=== PATIENT | male | born 1960 | race Caucasian/White ===

== ENCOUNTER → 2024-05-07 09:48 | Outpatient (REF) | payer MEDICARE, OTHER, SELFPAY | LOC: RAD 09:48 | PROVIDERS: ATTENDING PHYSICIAN Surgery Vascular Surgery | DX: I71.43 Infrarenal abdominal aortic aneurysm, without rupture (principal) | CPT/HCPCS: 76770 ==

== ENCOUNTER → 2024-05-12 09:27 | Outpatient (REF) | payer MEDICARE, OTHER, SELFPAY | LOC: HWRAD 09:27 | PROVIDERS: ATTENDING PHYSICIAN Surgery Vascular Surgery; FAMILY PHYSICIAN Internal Medicine | DX: I71.43 Infrarenal abdominal aortic aneurysm, without rupture (principal) | CPT/HCPCS: 74174; Q9967 ==

== ENCOUNTER → 2024-11-30 14:37 | Outpatient (REF) | payer MEDICARE, OTHER, SELFPAY | LOC: HWRAD 14:37 | PROVIDERS: ATTENDING PHYSICIAN Surgery Vascular Surgery; FAMILY PHYSICIAN Internal Medicine | DX: I71.43 Infrarenal abdominal aortic aneurysm, without rupture (principal) | CPT/HCPCS: 74176 ==

== ENCOUNTER → 2025-02-12 11:34 | Outpatient (REF) | payer MEDICARE, OTHER, SELFPAY | LOC: HWRAD 11:34 | PROVIDERS: ATTENDING PHYSICIAN Internal Medicine Critical Care Medicine; FAMILY PHYSICIAN Internal Medicine | DX: Z87.891 Personal history of nicotine dependence (principal) | CPT/HCPCS: 71271 ==

== ENCOUNTER 2025-03-01 06:08 | Day surgery (SDC) | payer MEDICARE, OTHER, SELFPAY ==
[2025-02-22 11:35] LABS: Hematocrit 42.3 % (39.0-52.0); Hemoglobin 13.8 g/dL (13.0-18.0); Mean Corp Hgb Conc. 32.6 g/dL (33.0-37.0); Mean Corpuscular Hgb 27.6 pg (27.0-31.0); Mean Corpuscular Volume 84.6 fL (80.0-94.0); Mean Platelet Volume 9.7 fL (7.4-10.4); Platelet Count 291 10^3/uL (130-400); Red Cell Dist. Width 15.2 % (11.5-14.5); White Blood Cell Count 11.3 10^3/uL (4.8-10.8)
[2025-02-22 11:44] LABS: PT 12.4 Sec (11.4-14.6)
[2025-02-22 11:45] LABS: APTT 33.7 Sec (23.4-35.0)
[2025-02-22 12:15] LABS: Blood Urea Nitrogen 17 mg/dl (9-20); Calcium 9.4 mg/dl (8.4-10.2); Carbon Dioxide 28 mmol/L (22-30); Chloride 100 mmol/L (98-107); Glucose 153 mg/dl (70-99); Potassium 4.4 mmol/L (3.5-5.1); Sodium 140 mmol/L (135-145); eGFR > 60.00
[2025-02-22 13:47] VITALS: BMI 38.0
[2025-03-01] VITALS (8 sets, daily range): BP systolic 103–147; BP diastolic 56–83; BMI 38.0
[2025-03-01 08:57] LABS: Glucose - Point of Care 146 mg/dl (70-99)
[2025-03-01 10:47] LABS: Glucose - Point of Care 168 mg/dl (70-99)
== END 2025-03-01 12:09 | disposition home or self-care (01) ==
LOC: SDS 06:08
PROVIDERS: ATTENDING PHYSICIAN Internal Medicine Critical Care Medicine; FAMILY PHYSICIAN Internal Medicine
DX: C34.31 Malignant neoplasm of lower lobe, right bronchus or lung (principal)
CPT/HCPCS: 31629; 31654; 88173; 88305; 36415; 80048; 81459; 82962; 85027; 85610; 85730; 87070; 87102; 87116; 87205; 88341; 88342; 93005; 94640

== ENCOUNTER → 2025-03-23 18:23 | Outpatient (REF) | payer MEDICARE, OTHER, SELFPAY | LOC: MRI 18:23 | PROVIDERS: ATTENDING PHYSICIAN Internal Medicine Hematology & Oncology | DX: C34.31 Malignant neoplasm of lower lobe, right bronchus or lung (principal) | CPT/HCPCS: 70553; A9575 ==

== ENCOUNTER → 2025-03-31 13:59 | Outpatient (REF) | payer MEDICARE, OTHER, SELFPAY | LOC: HWRAD 13:59 | PROVIDERS: ATTENDING PHYSICIAN Internal Medicine Critical Care Medicine; FAMILY PHYSICIAN Internal Medicine; OTHER PHYSICIAN Internal Medicine Hematology & Oncology; REFERRING PHYSICIAN Internal Medicine Cardiovascular Disease | DX: E04.1 Nontoxic single thyroid nodule (principal); R94.31 Abnormal electrocardiogram [ECG] [EKG] | CPT/HCPCS: 76536; 93306 ==

== ENCOUNTER → 2025-04-14 14:20 | Outpatient (REF) | payer MEDICARE, OTHER, SELFPAY ==
[2025-04-14 14:35] VITALS: BP_SYST 81
== END ==
LOC: RADI 14:20
PROVIDERS: ATTENDING PHYSICIAN Internal Medicine Critical Care Medicine; FAMILY PHYSICIAN Internal Medicine
DX: E04.1 Nontoxic single thyroid nodule (principal)
CPT/HCPCS: 10005; 88173

== ENCOUNTER → 2025-05-18 12:35 | Outpatient (REF) | payer MEDICARE, OTHER, SELFPAY ==
[2025-05-18 14:09] LABS: Hematocrit 42.2 % (39.0-52.0); Hemoglobin 13.4 g/dL (13.0-18.0); Mean Corp Hgb Conc. 31.8 g/dL (33.0-37.0); Mean Corpuscular Volume 85.6 fL (80.0-94.0); Nucleated Red Blood Cells % 0 % (-); Platelet Count 320 10^3/uL (130-400); Red Cell Dist. Width 15.5 % (11.5-14.5)
[2025-05-18 16:12] LABS: ALT (SGPT) 15 U/L (0-50); AST (SGOT) 12 U/L (17-59); Albumin 4.5 g/dl (3.5-5.0); Alkaline Phosphatase 100 U/L (38-126); Blood Urea Nitrogen 20 mg/dl (9-20); Calcium 9.6 mg/dl (8.4-10.2); Carbon Dioxide 28 mmol/L (22-30); Chloride 98 mmol/L (98-107); Glucose 136 mg/dl (70-99); Magnesium 2.0 mg/dl (1.6-2.3); Potassium 4.7 mmol/L (3.5-5.1); Sodium 138 mmol/L (135-145); Total Protein 7.8 g/dl (6.3-8.2); eGFR > 60.00
== END ==
LOC: REG 12:35
PROVIDERS: ATTENDING PHYSICIAN Internal Medicine Hematology & Oncology; FAMILY PHYSICIAN Internal Medicine; OTHER PHYSICIAN Internal Medicine Hematology & Oncology
DX: C34.31 Malignant neoplasm of lower lobe, right bronchus or lung (principal)
CPT/HCPCS: 36415; 80053; 80076; 83735; 85025

== ENCOUNTER → 2025-06-02 12:26 | Outpatient (REF) | payer MEDICARE, OTHER, SELFPAY ==
[2025-06-02 13:57] LABS: Hematocrit 38.2 % (39.0-52.0); Hemoglobin 12.3 g/dL (13.0-18.0); Mean Corp Hgb Conc. 32.2 g/dL (33.0-37.0); Mean Corpuscular Volume 84.7 fL (80.0-94.0); Nucleated Red Blood Cells % 0 % (-); Platelet Count 219 10^3/uL (130-400); Red Cell Dist. Width 15.9 % (11.5-14.5)
[2025-06-02 14:20] LABS: ALT (SGPT) 19 U/L (0-50); AST (SGOT) 13 U/L (17-59); Albumin 4.2 g/dl (3.5-5.0); Alkaline Phosphatase 107 U/L (38-126); Blood Urea Nitrogen 18 mg/dl (9-20); Calcium 10.0 mg/dl (8.4-10.2); Carbon Dioxide 29 mmol/L (22-30); Chloride 100 mmol/L (98-107); Glucose 128 mg/dl (70-99); Magnesium 1.9 mg/dl (1.6-2.3); Potassium 4.6 mmol/L (3.5-5.1); Sodium 137 mmol/L (135-145); Total Protein 7.5 g/dl (6.3-8.2); eGFR > 60.00
== END ==
LOC: REG 12:26
PROVIDERS: ATTENDING PHYSICIAN Internal Medicine Hematology & Oncology; FAMILY PHYSICIAN Internal Medicine
DX: C34.31 Malignant neoplasm of lower lobe, right bronchus or lung (principal)
CPT/HCPCS: 36415; 80053; 83735; 85025

== ENCOUNTER → 2025-06-09 11:52 | Outpatient (REF) | payer MEDICARE, OTHER, SELFPAY ==
[2025-06-09 13:00] LABS: Hematocrit 36.5 % (39.0-52.0); Hemoglobin 11.9 g/dL (13.0-18.0); Mean Corp Hgb Conc. 32.6 g/dL (33.0-37.0); Mean Corpuscular Volume 85.1 fL (80.0-94.0); Nucleated Red Blood Cells % 0 % (-); Platelet Count 148 10^3/uL (130-400); Red Cell Dist. Width 16.7 % (11.5-14.5)
[2025-06-09 13:32] LABS: ALT (SGPT) 18 U/L (0-50); AST (SGOT) 13 U/L (17-59); Albumin 4.2 g/dl (3.5-5.0); Alkaline Phosphatase 96 U/L (38-126); Blood Urea Nitrogen 20 mg/dl (9-20); Calcium 9.5 mg/dl (8.4-10.2); Carbon Dioxide 29 mmol/L (22-30); Chloride 103 mmol/L (98-107); Glucose 120 mg/dl (70-99); Magnesium 1.8 mg/dl (1.6-2.3); Potassium 4.8 mmol/L (3.5-5.1); Sodium 140 mmol/L (135-145); Total Protein 7.2 g/dl (6.3-8.2); eGFR > 60.00
== END ==
LOC: REG 11:52
PROVIDERS: ATTENDING PHYSICIAN Internal Medicine Hematology & Oncology
DX: C34.31 Malignant neoplasm of lower lobe, right bronchus or lung (principal)
CPT/HCPCS: 36415; 80053; 83735; 85025

== ENCOUNTER → 2025-06-16 12:32 | Outpatient (REF) | payer MEDICARE, OTHER, SELFPAY ==
[2025-06-16 13:48] LABS: Hematocrit 35.8 % (39.0-52.0); Hemoglobin 11.7 g/dL (13.0-18.0); Mean Corp Hgb Conc. 32.7 g/dL (33.0-37.0); Mean Corpuscular Volume 85.0 fL (80.0-94.0); Nucleated Red Blood Cells % 0 % (-); Platelet Count 148 10^3/uL (130-400); Red Cell Dist. Width 17.5 % (11.5-14.5)
[2025-06-16 15:29] LABS: ALT (SGPT) 19 U/L (0-50); AST (SGOT) 13 U/L (17-59); Albumin 4.3 g/dl (3.5-5.0); Alkaline Phosphatase 102 U/L (38-126); Blood Urea Nitrogen 20 mg/dl (9-20); Calcium 10.0 mg/dl (8.4-10.2); Carbon Dioxide 31 mmol/L (22-30); Chloride 100 mmol/L (98-107); Glucose 135 mg/dl (70-99); Magnesium 1.8 mg/dl (1.6-2.3); Potassium 4.2 mmol/L (3.5-5.1); Sodium 139 mmol/L (135-145); Total Protein 7.4 g/dl (6.3-8.2); eGFR > 60.00
== END ==
LOC: REG 12:32
PROVIDERS: ATTENDING PHYSICIAN Internal Medicine Hematology & Oncology; FAMILY PHYSICIAN Internal Medicine
DX: C34.31 Malignant neoplasm of lower lobe, right bronchus or lung (principal)
CPT/HCPCS: 36415; 80053; 83735; 85025

== ENCOUNTER → 2025-06-23 11:12 | Outpatient (REF) | payer MEDICARE, OTHER, SELFPAY ==
[2025-06-23 16:20] LABS: ALT (SGPT) 19 U/L (0-50); AST (SGOT) 16 U/L (17-59); Albumin 4.2 g/dl (3.5-5.0); Alkaline Phosphatase 97 U/L (38-126); Blood Urea Nitrogen 21 mg/dl (9-20); Calcium 9.9 mg/dl (8.4-10.2); Carbon Dioxide 24 mmol/L (22-30); Chloride 105 mmol/L (98-107); Glucose 121 mg/dl (70-99); Magnesium 1.8 mg/dl (1.6-2.3); Potassium 4.8 mmol/L (3.5-5.1); Sodium 138 mmol/L (135-145); Total Protein 7.3 g/dl (6.3-8.2); eGFR > 60.00
[2025-06-23 18:09] LABS: Hematocrit 32.7 % (39.0-52.0); Hemoglobin 11.1 g/dL (13.0-18.0); Mean Corp Hgb Conc. 33.9 g/dL (33.0-37.0); Mean Corpuscular Volume 85.2 fL (80.0-94.0); Nucleated Red Blood Cells % 0 % (-); Platelet Count 150 10^3/uL (130-400); Red Cell Dist. Width 18.1 % (11.5-14.5)
== END ==
LOC: HWRAD 11:12
PROVIDERS: ATTENDING PHYSICIAN Surgery Vascular Surgery; FAMILY PHYSICIAN Internal Medicine; REFERRING PHYSICIAN Internal Medicine Hematology & Oncology
DX: I71.43 Infrarenal abdominal aortic aneurysm, without rupture (principal); C34.31 Malignant neoplasm of lower lobe, right bronchus or lung
CPT/HCPCS: 36415; 74176; 80053; 83735; 85025

== ENCOUNTER 2025-06-29 15:53 | Emergency (ER) | payer MEDICARE, OTHER, SELFPAY ==
[2025-06-29 15:54] VITALS: BP 148/91
[2025-06-29 16:20] LABS: Hematocrit 33.1 % (39.0-52.0); Hemoglobin 11.2 g/dL (13.0-18.0); Mean Corp Hgb Conc. 33.8 g/dL (33.0-37.0); Mean Corpuscular Volume 83.0 fL (80.0-94.0); Nucleated Red Blood Cells % 0 % (-); Platelet Count 204 10^3/uL (130-400); Red Cell Dist. Width 20.4 % (11.5-14.5)
[2025-06-29 16:42] VITALS: BP 131/82
[2025-06-29 16:43] VITALS: BMI 38.0
[2025-06-29 16:45] LABS: INR 0.96; PT 13.1 Sec (11.4-14.6)
[2025-06-29 16:46] LABS: ALT (SGPT) 18 U/L (0-50); APTT 30.8 Sec (23.4-35.0); AST (SGOT) 14 U/L (17-59); Albumin 4.5 g/dl (3.5-5.0); Alkaline Phosphatase 119 U/L (38-126); Blood Urea Nitrogen 19 mg/dl (9-20); Calcium 9.5 mg/dl (8.4-10.2); Carbon Dioxide 21 mmol/L (22-30); Chloride 101 mmol/L (98-107); Estimated Creatinine Clearance > 125 ml/min; Glucose 166 mg/dl (70-99); Potassium 4.1 mmol/L (3.5-5.1); Sodium 134 mmol/L (135-145); Total Protein 7.8 g/dl (6.3-8.2); eGFR > 60.00
--- NOTE | 2025-06-29 16:47 | ED.GENMED ---
History of Present Illness
General
Chief Complaint: Heart Rate Problem
Time Seen by Provider: 06/29/25 16:47
History of Present Illness
History of Present Illness:
FOCUSED PAST MEDICAL HISTORY
- Lung cancer, diabetes
REVIEW OF OLD RECORDS
- I reviewed bronchoscopy report from February 2025
Note:
CHIEF COMPLAINT(S)
Elevated heart rate and shortness of breath.
HISTORY OF PRESENT ILLNESS
The patient is a 65-year-old male with a history of small cell lung cancer, currently undergoing chemotherapy and radiation treatments. The patient reports experiencing an elevated heart rate for the last few weeks, initially around 105 beats per
minute and recently escalating to 138 beats per minute, noted during a visit to the oncologists office. He also reports significant shortness of breath. The patient has a known mass in the right lung confirmed as small cell lung cancer and has
undergone radiation treatment under the care of Dr. Crawford
Additional health concerns include aortic aneurysm and a history of a transient ischemic attack (mini-stroke), but no ongoing deficits or hypertension have been reported. The latest blood work showed a previously low white blood cell count has
improved, but hemoglobin remains slightly low at 11, and glucose levels are elevated with a reading of 160, in the context of his known diabetes. The patient was advised on the possibility of dehydration contributing to the elevated heart rate and
will receive IV fluids. A CT scan with contrast of the chest is recommended to further evaluate for potential complications such as a blood clot.
PAST MEDICAL AND SURGICAL HISTORY
- Small cell lung cancer
- Aortic aneurysm
- Transient ischemic attack (mini-stroke)
- Diabetes
MEDICATIONS
Not specifically listed, but patient is undergoing chemotherapy and radiation.
PHYSICAL EXAM
- General: Alert, no acute distress. Appears somewhat weak and debilitated. Elevated BMI.
- Skin: Warm, dry.
- Head: Normocephalic, atraumatic.
- Neck: Supple, trachea midline.
- Eyes, ears, nose, mouth and throat: Oral mucosa moist.
- Cardiovascular: Normal peripheral perfusion, no edema. Tachycardic
- Respiratory: Respirations are non-labored.
- Gastrointestinal: Abdomen nondistended.
- Back: Normal range of motion, normal alignment.
- Musculoskeletal: Normal range of motion, normal strength.
- Neurological: Alert and oriented to person, place, time, and situation; no focal neurological deficit observed.
- Psychiatric: Cooperative, appropriate mood & affect.
PROBLEM LIST
Acute:
- Elevated heart rate (sinus tachycardia)
- Shortness of breath
Chronic:
- Small cell lung cancer
- Diabetes
- Aortic aneurysm
- History of transient ischemic attack
PLAN
- Administer IV fluids to address possible dehydration contributing to sinus tachycardia.
- Perform a CT scan with contrast of the chest to evaluate for complications such as a pulmonary embolism.
- Close monitoring of heart rate and respiratory status.
- Possible consultation with cardiology based on findings from Fran the patients advanced quality engineer.
- Monitor blood glucose levels closely due to known diabetes.
DIFFERENTIAL DIAGNOSIS
The Differential Diagnosis includes, in no particular order and is not limited to:
- Sinus tachycardia secondary to dehydration
- Sinus tachycardia associated with anxiety or pain
- Atrial fibrillation
- Supraventricular tachycardia
- Pulmonary embolism
- Infection or sepsis
- Thyroid dysfunction (e.g., hyperthyroidism)
- Chemotherapy-induced cardiotoxicity
- Aortic aneurysm-related complications
- Acute coronary syndrome
RADIOLOGY
- CTA chest obtained
EKG
- Sinus 131, PACs, right bundle branch block, tachycardia and PVCs are new in comparison to 02/22/2025
LABS
- White count 4.5 (was 1.86 days ago), hemoglobin 11.2 which is near baseline, platelets 204, glucose 166
UPDATE
-SUMMARY OF ENCOUNTER
The patient, a 65-year-old male with a history of small cell lung cancer, presented to the emergency department with complaints of an elevated heart rate and shortness of breath. He reported his heart rate was initially 105 beats per minute, which
increased to 138 beats per minute. The concern was addressed with intravenous fluids, resulting in an improvement of heart rate to approximately 110 beats per [address] A [address] scan was conducted, showing changes consistent with known lung cancer but no
signs of pulmonary embolism, pneumonia, or pleural effusion. Blood work showed stable hemoglobin at 11.2 and improved white blood cell count at 4.5, which had previously been low. The patients kidney function was normal, suggesting no severe
dehydration.
DISPOSITION
Discharge
ASSESSMENT
The patient appears to have an elevated heart rate likely secondary to mild dehydration, with no evidence of acute complications such as pulmonary embolism or infection based on imaging and lab results.
EMERGENCY TREATMENTS ADMINISTERED
IV fluids were administered.
MANAGEMENT OF THE PATIENTS CARE WAS DISCUSSED WITH
Dr. Mendoza, the patients oncologist, was contacted to discuss patient management.
PLAN
The patient will be discharged as his symptoms have improved with treatment. Monitoring his heart rate and hydration status is recommended. Continued coordination with oncology is necessary for ongoing cancer management.
INDEPENDENT REVIEW OF LABS AND INTERPRETATION OF TESTS
My independent review of the CBC indicates hemoglobin is 11.2, and the white blood cell count has improved to 4.5, aligning with the recent resolution of previous myelosuppression. Kidney function is normal.
My independent interpretation of the chest CT shows no signs of pulmonary embolism, pneumonia, or pleural effusion, but confirms known lung cancer pathology.
MEDICATION RECONCILIATION
IV fluids administered during the stay to manage dehydration.
MEDICAL DECISION MAKING
1. Number and Complexity of Problems Addressed: Chronic conditions affecting care: small cell lung cancer, elevated heart rate (sinus tachycardia), dehydration with DDx including pulmonary embolism, coley vivtachycardia, infection, and acute coronary
syndrome.
2. Data:
Category 1: Tests and documents:
Reviewed CBC showing hemoglobin at 11.2 and white blood count at 4.5.
Independently interpreted chest CT scan showing no acute complications but consistent with known cancer pathology.
Category 2: Assessment requiring an independent historian: Consulted with Dr. Reilly regarding patient management.
-Risk:
Consideration of Admission/Observation: Escalation of care including admission/observation was considered given the complexity and risk of the patients presenting complaint, exam findings, and their underlying comorbidities. However, ultimately I
feel the patient is safe for outpatient management with close follow-up. Reasoning: Work-up reassuring, does not reveal any acute life/organ threatening processes, patients symptoms well controlled upon reevaluation, reexamination is reassuring,
vitals are stable, patient agreeable with discharge, reliable for follow-up.
DIAGNOSIS
- Sinus Tachycardia, R00.0
- Small Cell Lung Cancer, C34.9
- Dehydration, E86.0
Phy Exam
Physical Exam
Physical Exam:
See HPI
Course
Orders/Labs/Results
Orders:
Orders
06/29/25 15:53
Electrocardiogram (*1) Urgent
Reason for Study: Atrial Fibrillation
EKG- Treatment ONCE
06/29/25 16:08
CMP [Comprehensive Metabolic Panel] Urgent
Complete Blood Count/With Diff Urgent
PT/INR [Prothrombin Time] Urgent
PTT Urgent
Troponin I Urgent
06/29/25 16:57
CT Chest PE Study Urgent
Comment:
Reason For Exam: sob tachycardia lung ca
0.9% Sodium Chloride 500 ml [Nss] 500 ml IV BOLUS
Abnormal Lab Results
06/29/25
16:08
WBC 4.5 L 10^3/uL
(4.8-10.8)
RBC 3.99 L 10^6/uL
(4.70-6.10)
Hgb 11.2 L g/dL
(13.0-18.0)
Hct 33.1 L %
(39.0-52.0)
RDW 20.4 H %
(11.5-14.5)
Absolute Lymphs (auto) 0.6 L 10^3/uL
(1.2-3.4)
Absolute Monos (auto) 0.8 H 10^3/uL
(0.1-0.6)
Immature Gran % 0.7 H %
(0-0.5)
Lymphocytes % 14.2 L %
(20.5-51.1)
Monocytes % 18.2 H %
(1.7-9.3)
Sodium 134 L mmol/L
(135-145)
Carbon Dioxide 21 L mmol/L
(22-30)
Glucose 166 H mg/dl
(70-99)
AST 14 L U/L
(17-59)
06/29/25 16:08
06/29/25 16:08
Vital Signs
Initial and Last Documented VS:
Initial Vital Signs
Temp Pulse Resp BP Pulse Ox
36.4 C 134 20 148/91 98
06/29/25 15:54 06/29/25 15:54 06/29/25 15:54 06/29/25 15:54 06/29/25 15:54
Last Documented Vital Signs
Temp Pulse Resp BP Pulse Ox
36.4 C 108 20 116/77 96
06/29/25 15:54 06/29/25 19:15 06/29/25 19:15 06/29/25 19:00 06/29/25 19:15
*Pulse Oximetry
SaO2: 98
Oxygen Mode of Delivery: Room air
Patient hypoxic: no
*Critical Care Note
Total Time (30-74mins, 75-104mins- exclusive of procedures): Not Applicable
ED Attending Note
-
Portions of this chart may have been created with voice recognition software.� Occasional wrong word or��sound alike� substitutions may have occurred due to the inherent limitations of voice recognition software.
Discharge Plan
Departure
Patient Disposition: Home (Routine Discharge)
Date of Disposition: 06/29/25
Time of Disposition: 18:57
Patient with high blood pressure during this ER visit?: Yes
Discharge Problem:
Tachycardia
Prescriptions:
No Action
losartan 50 mg Tablet
50 mg PO DAILY
atorvastatin 40 mg Tablet
40 mg PO DAILY
metformin 500 mg Tablet
500 mg PO BID
metoprolol succinate 50 mg Tablet Extended Release 24 Hr
50 mg PO DAILY
pantoprazole [Protonix] 40 mg Tablet,Delayed Release (Dr/Ec)
40 mg PO DAILY
triamcinolone acetonide [Nasacort] 55 mcg Aerosol,Wickes
1 spray INTRANASAL DAILY PRN (Reason: congestion)
aspirin 81 mg Tablet
81 mg PO DAILY
hydrochlorothiazide 25 mg Tablet
25 mg PO DAILY
albuterol sulfate 90 mcg/actuation Hfa Aerosol Inhaler
2 puff INHALATION BID
duloxetine [Cymbalta] 60 mg Capsule,Delayed Release(Dr/Ec)
60 mg PO DAILY
budesonide-formoterol [Breyna] 160-4.5 mcg/actuation Hfa Aerosol Inhaler
2 puff INHALATION BID
Referrals:
Kavin Vegas DO [Family Provider, Internal Medicine]
Activity Restrictions/Additional Instructions:
I notified Dr. Ravi of your evaluation here. Return here if worse or other concerns. Your hemoglobin is slightly low which is similar to prior. Your EKG shows a normal sinus rhythm but on the faster side.
Interventions
Interventions:
*Risk Screen - Suicide Last Done: 06/29/25 17:14
*Neglect/Abuse Screening Last Done: 06/29/25 17:14
*ED COVID-19 Vaccine History Last Done: 06/29/25 17:57
ED- Cardiac Assessment Last Done: 06/29/25 17:14
ED- Pulmonary Assessment Last Done: 06/29/25 17:14
Discharge Date and Time
Print Language: PASHTO
[2025-06-29 16:49] LABS: Troponin I 0.014 ng/ml
[2025-06-29 17:00] VITALS: BP 136/72
[2025-06-29] MEDS: NSS 500 IV (17:52)
[2025-06-29 18:00] VITALS: BP 123/84
[2025-06-29 19:00] VITALS: BP 116/77
== END 2025-06-29 20:15 | disposition home or self-care (01) ==
LOC: EMR 15:53
PROVIDERS: Physician Assistant Medical; EMERGENCY PHYSICIAN Emergency Medicine; FAMILY PHYSICIAN Internal Medicine
DX: R00.0 Tachycardia, unspecified (principal); E86.0 Dehydration; I49.1 Atrial premature depolarization; I45.10 Unspecified right bundle-branch block; C34.91 Malignant neoplasm of unspecified part of right bronchus or lung; E11.9 Type 2 diabetes mellitus without complications; I71.9 Aortic aneurysm of unspecified site, without rupture; Z79.84 Long term (current) use of oral hypoglycemic drugs; Z79.82 Long term (current) use of aspirin; Z86.73 Personal history of transient ischemic attack (TIA), and cerebral infarction without residual deficits; Z92.3 Personal history of irradiation
CPT/HCPCS: 99284; 96360; 71275; 80053; 84484; 85025; 85610; 85730; 93005; Q9967

== ENCOUNTER → 2025-07-30 17:05 | Outpatient (REF) | payer MEDICARE, SELFPAY | LOC: RAD 17:05 | PROVIDERS: ATTENDING PHYSICIAN Surgery; FAMILY PHYSICIAN Internal Medicine; OTHER PHYSICIAN Internal Medicine Hematology & Oncology; OTHER PHYSICIAN Radiology Radiation Oncology | DX: C34.31 Malignant neoplasm of lower lobe, right bronchus or lung (principal) | CPT/HCPCS: 71260; Q9967 ==

== ENCOUNTER → 2025-08-05 08:38 | Outpatient (REF) | payer MEDICARE, SELFPAY ==
[2025-08-05 10:36] LABS: Blood Urea Nitrogen 12 mg/dl (9-20)
== END ==
LOC: RSP 08:38
PROVIDERS: ATTENDING PHYSICIAN Surgery; FAMILY PHYSICIAN Internal Medicine
DX: R91.1 Solitary pulmonary nodule (principal)
CPT/HCPCS: 36415; 82565; 84520; 88738; 94060; 94727; 94729

== ENCOUNTER → 2025-08-26 12:48 | Outpatient (REF) | payer MEDICARE, SELFPAY | LOC: HWRCS 12:48 | PROVIDERS: ATTENDING PHYSICIAN Internal Medicine Cardiovascular Disease; FAMILY PHYSICIAN Internal Medicine | DX: R00.0 Tachycardia, unspecified (principal); I31.39 Other pericardial effusion (noninflammatory) | CPT/HCPCS: 93306 ==

== ENCOUNTER → 2025-09-15 16:17 | Outpatient (REF) | payer MEDICARE, SELFPAY | LOC: RAD 16:17 | PROVIDERS: ATTENDING PHYSICIAN Radiology Radiation Oncology; FAMILY PHYSICIAN Internal Medicine | DX: C34.31 Malignant neoplasm of lower lobe, right bronchus or lung (principal) | CPT/HCPCS: 71260; Q9967 ==

== ENCOUNTER → 2025-10-13 12:31 | Outpatient (REF) | payer MEDICARE, SELFPAY ==
[2025-10-13 14:57] LABS: Hematocrit 39.8 % (39.0-52.0); Hemoglobin 12.8 g/dL (13.0-18.0); Mean Corp Hgb Conc. 32.2 g/dL (33.0-37.0); Mean Corpuscular Volume 89.4 fL (80.0-94.0); Nucleated Red Blood Cells % 0 % (-); Platelet Count 239 10^3/uL (130-400); Red Cell Dist. Width 14.6 % (11.5-14.5)
[2025-10-13 15:41] LABS: ALT (SGPT) 16 U/L (0-50); AST (SGOT) 15 U/L (17-59); Albumin 4.5 g/dl (3.5-5.0); Alkaline Phosphatase 106 U/L (38-126); Blood Urea Nitrogen 19 mg/dl (9-20); Calcium 9.5 mg/dl (8.4-10.2); Carbon Dioxide 29 mmol/L (22-30); Chloride 98 mmol/L (98-107); Glucose 151 mg/dl (70-99); Potassium 4.1 mmol/L (3.5-5.1); Sodium 136 mmol/L (135-145); Total Protein 7.9 g/dl (6.3-8.2); eGFR > 60.00
== END ==
LOC: HWLAB 12:31
PROVIDERS: ATTENDING PHYSICIAN Internal Medicine Hematology & Oncology; FAMILY PHYSICIAN Internal Medicine
DX: C34.31 Malignant neoplasm of lower lobe, right bronchus or lung (principal); E04.8 Other specified nontoxic goiter
CPT/HCPCS: 36415; 80053; 84439; 84443; 85025